=== PATIENT | female | born 1955 | race Caucasian/White ===

== ENCOUNTER → 2018-12-29 | Outpatient (CLI) | payer BC ==
--- NOTE | 2018-12-29 15:20 | BD ---
EXAMINATION TYPE: Axial Bone Density DATE OF EXAM: 12/29/2018 COMPARISON: NONE CLINICAL HISTORY: Z 78.0 Height: 5 FT 5 1/4 IN Weight: 195 FRAX RISK QUESTIONS: Secondary Osteoporosis: 3. Menopause before 45: YES RISK FACTORS HISTORY OF: Surgery to Spine/Hip(right/left)/Wrist (right/left): XOCHITL WRIST FOR CARPAL TUNNEL Active: YES Postmenopausal woman: AROUND 40 TOOK RADIOACTIVE PILL TO KILL THYROID AFTER THAT NO LONGER HAD CYCLES Take estrogen and/or progesterone medications: TOOK HRT AROUND 3-5 YEARS NOT SURE AGE Lost more than 2 inches in height since high school: YES MEDICATIONS: Thyroid Medications: YES Which medication: SYNTHROID How Long: SINCE HER EARLY 40'S Additional Medications: SYNTHROID, BLOOD PRESSURE MEDS, CONCERTA, Additional History: EXAM MEASUREMENTS: Bone mineral densitometry was performed using the [employer] System. Bone mineral density as measured about the Lumbar spine is: ----- L1-L4(G/cm2): 1.218 T Score Values are as follows: ----- L2: 0.0 ----- L3: 0.8 ----- L4: 0.1 ----- L1-L4: 0.3 BASELINE HERE Bone mineral density about the R hip (g/cm2): 1.157 Bone mineral density about the L hip (g/cm2): 1.052 T Score values are as follows: -----R Neck: 0.9 -----L Neck: 0.1 -----R Total: 0.3 -----L Total: 0.2 BASELINE HERE IMPRESSION: Normal (Values between +1 and -1 indicate normal bone mass). Consider repeating this study in 5 year s or sooner if there is some new clinical indication. NOTE: T-SCORE=SD OF THE YOUNG ADULT MEAN.
--- NOTE | 2019-01-02 09:24 | MM ---
Reason for exam: screening (asymptomatic). Last mammogram was performed 2 years and 8 months ago. History: Patient is postmenopausal and history of other cancer. Benign right mammotome panel of the right breast, November 14, 2006. Benign excisional biopsy of the right breast, 1999. Took estrogen for 5 years beginning at age 44. Took progesterone for 5 years beginning at age 44. Physical Findings: A clinical breast exam by your physician is recommended on an annual basis and results should be correlated with mammographic findings. MG Screening Mammo w CAD Bilateral CC and MLO view(s) were taken. Prior study comparison: April 20, 2016, bilateral MG screening mammo w CAD. January 24, 2014, bilateral MG screening mammo w CAD. There are scattered fibroglandular densities. Previous mammotome biopsy in the right breast. No significant changes when compared with prior studies. ASSESSMENT: Negative, BI-RAD 1 RECOMMENDATION: Routine screening mammogram of both breasts in 1 year.
== END | disposition home or self-care (01) ==
LOC: RADMAMWWP 14:25
PROVIDERS: ATTEND Family Medicine
DX: Z12.31 Encounter for screening mammogram for malignant neoplasm of breast (principal); Z78.0 Asymptomatic menopausal state
CPT/HCPCS: 77067; 77080

== ENCOUNTER → 2019-07-18 | Outpatient (CLI) | payer BC ==
[2019-07-18 08:50] LABS: African American GFR (CKD) >90 (>60 ml/min/1.73 sqM); Blood Urea Nitrogen 17 mg/dL (7-17); Non-African American GFR(CKD) >90 (>60 ml/min/1.73 sqM)
--- NOTE | 2019-07-18 09:54 | CT ---
EXAMINATION TYPE: CT foot LT w con DATE OF EXAM: 07/18/2019 COMPARISON: None. HISTORY: Left foot pain evaluate second MTP joint per order. CT DLP: 188.70 mGycm Automated exposure control for dose reduction was used. CONTRAST: Performed with IV Contrast, patient injected with 100 ml mL of Isovue 300. FINDINGS: There is focal calcification along peripheral aspect of the distal Achilles tendon near the calcaneal insertion. There is moderate to large size inferior calcaneal spur. Ankle mortise symmetry is preser dominick. Normal sinus tarsi fat. Subtalar joint maintained. There is valgus positioning metatarsal phalangeal joints of all toes with some flexion in the distal second through fifth toes. No suspicious narrowing or spurring with particular attention to the secon d metatarsophalangeal joint. Finding may be in part more exaggerated due to slight oblique positionin g versus desired flat positioning. The Lisfranc joints are maintained. Midfoot structures thought within normal limits. Multiple fairly well well-maintained. Mild subcutaneous edema along the plantar surface is seen. No s uspicious enhancement is noted. IMPRESSION: As above.
== END | disposition home or self-care (01) ==
LOC: RADCTMAIN 07:56
PROVIDERS: ATTEND Family Medicine
DX: M65.872 Other synovitis and tenosynovitis, left ankle and foot (principal); M77.32 Calcaneal spur, left foot; M21.272 Flexion deformity, left ankle and toes; M79.672 Pain in left foot
CPT/HCPCS: 82565; 84520; 36415; 73701; Q9967

== ENCOUNTER → 2021-11-04 | Outpatient (CLI) | payer BC, MEDICARE ==
[2021-11-04 14:16] LABS: Basophils # (A) 0.08 X 10*3/uL (0.00-0.10); Basophils % (A) 0.9 %; Eosinophils # (A) 0.16 X 10*3/uL (0.04-0.35); Eosinophils % (A) 1.7 %; HCT 43.7 % (37.2-46.3); HGB 13.8 g/dL (12.0-15.0); Immature Grans, Automated 0.4 %; Lymphocytes # (A) 3.21 X 10*3/uL (0.90-5.00); Lymphocytes % (A) 34.3 %; MCH 29.7 pg (27.0-32.0); MCHC 31.6 g/dL (32.0-37.0); Mean Platelet Volume 12.5 fL (9.5-12.2); Monocytes # (A) 0.99 X 10*3/uL (0.20-1.00); Monocytes % (A) 10.6 %; NRBC Per 100 WBC 0 /100 WBCS (0.0-0.0); Neutrophils # (A) 4.87 X 10*3/uL (1.80-7.70); Neutrophils % (A) 52.1 %; Platelet Count 195 X 10*3/uL (140-440); RBC 4.65 X 10*6/uL (4.10-5.20); RDW 13.1 % (11.5-14.5); WBC 9.35 X 10*3/uL (4.50-10.00)
[2021-11-04 14:50] LABS: ALT 43 U/L (8-44); AST 37 U/L (13-35); African American GFR (CKD) 83.9 (60.0-200.0); Albumin 4.4 g/dL (3.8-4.9); Albumin/Globulin Ratio 2.12 (1.60-3.17); Alkaline Phosphatase 87 U/L (41-126); BUN/Creat Ratio 14.64 Ratio (12.00-20.00); Blood Urea Nitrogen 12.3 mg/dL (9.0-27.0); Calcium 8.7 mg/dL (8.7-10.3); Carbon Dioxide 24.1 mmol/L (20.0-27.5); Chloride 102 mmol/L (96-109); Chol/HDL Ratio 3.69 Ratio; Globulin 2.1 g/dL (1.6-3.3); Glucose 152 mg/dL (70-110); LDL Cholesterol,Calculated 75.8 mg/dL (0.0-131.0); Non-African American GFR(CKD) 72.4 (60.0-200.0); Potassium 3.5 mmol/L (3.5-5.5); Sodium 141 mmol/L (135-145); Total Protein 6.5 g/dL (6.2-8.2)
--- NOTE | 2021-11-05 10:59 | MM ---
Reason for Exam: Screening (asymptomatic). Last mammogram was performed 2 year(s) and 10 month(s) ago. Patient History: Menarche at age 15. First Full-Term at age 18. Postmenopausal. Other cancer. Estrogen for 5 years from age 44 until age 49. Progesterone for 5 years from age 44 until age 49. 1999, Benign Excisional Biopsy on the right side. 11/14/2006, Benign Core Biopsy on the right side. Risk Values: Judy 5 year model risk: 1.7%. NCI Lifetime model risk: 6.0%. Prior Study Comparison: 01/24/2014 Bilateral Screening Mammogram, [facility]. 04/20/2016 Bilateral Screening Mammogram, [facility]. 12/29/2018 Bilateral Screening Mammogram, [facility]. Tissue Density: There are scattered fibroglandular densities. Findings: Analyzed By CAD. There is no suspicious group of microcalcifications or new suspicious mass in either breast. Overall Assessment: Negative, BI-RAD 1 Management: Screening Mammogram of both breasts in 1 year. A clinical breast exam by your physician is recommended on an annual basis and results should be correlated with mammographic findings. Electronically signed and approved by: Noé Yancey M.D. [facility]olog[facility]
== END | disposition home or self-care (01) ==
LOC: RADMAMWWP 07:58
PROVIDERS: ATTEND Family Medicine
DX: Z12.31 Encounter for screening mammogram for malignant neoplasm of breast (principal); E11.9 Type 2 diabetes mellitus without complications; I10 Essential (primary) hypertension; E78.5 Hyperlipidemia, unspecified
CPT/HCPCS: 77063; 77067; 80053; 80061; 83036; 84443; 85025